=== PATIENT | female | born 1955 | race African-American/Black ===

== ENCOUNTER → 2016-12-09 | Outpatient (CLI) | payer BC ==
--- NOTE | ~2016-12-09 | MY29 ---
[facility] A Service of [facility] RADIOLOGY TEXT RESULTS PATIENT: EDUARDO VERDE LOCATION: [facility] : 51 UNIT #: [id number] AGE: [address]: Kerry Baerd MD SEX: F ORDER DR: [id number] [facility] [address] [place], [place] [address] [id number] O MR#: [id number] Acc #: [id number] NAME: EDUARDO VERDE : 1955 SEX: F STUDY DATE/TIME: 12/09/2016 13:55 UNIT: [facility] ROOM: STUDY DESCRIPTION: MY LALO SCREENING W/ CAD BILAT Attending Physician: Kerry Beard M.D. Referring Physician: Kerry Beard M.D. Ordering Physician: Kerry Beard M.D. Primary Care Physician: Kerry Beard M.D. MEDICAL IMAGING REPORT This report is preliminary unless electronic signature is present EXAM Digital screening mammogram, 12/09/2016; [facility]. HISTORY 61-year-old woman, no risk elevation. Prior cyst aspiration, right breast. Annual screen. COMPARISON Comparison mammograms, 06/07/2008, 08/16/2009, 03/07/2011, 03/10/2013. FINDINGS Digital imaging of each breast was completed utilizing a two-view examination of each breast in craniocaudal and mediolateral-oblique projections. Review and interpretation of digital mammograms include a second review in conjunction with FDA-approved CAD device. There is a normal parenchymal presentation bilaterally consistent with the patient's age. There are no breast masses imaged and no parenchymal asymmetry is visualized. There are no suspicious microcalcifications and I see no focal architectural disturbance. IMPRESSION Negative screening digital mammogram. One-year followup recommended. Patients over the age of 40 are entered into a reminder system with target due date for the next mammogram. A result letter will also be sent to the patient. BIRADS: 1 Negative. Dictated by... Grady Richard M.D. [facility]. [facility] A Service of [facility] RADIOLOGY TEXT RESULTS PATIENT: EDUARDO VERDE LOCATION: [facility] : 51 UNIT #: [id number] AGE: [address]: Kerry Beard MD SEX: F ORDER DR: THIS IS AN ELECTRONICALLY VERIFIED REPORT Grady Richard M.D. at 12/10/2016 8:24 AM GINGER/sisi TD: 12/09/2016 19:38 JOB #: [id number] MEDICAL IMAGING REPORT Page 1 of 1 COPY
== END | disposition home or self-care (01) ==
LOC: CWCC 13:28
DX: Z12.31 Encounter for screening mammogram for malignant neoplasm of breast (principal)
CPT/HCPCS: G0202